=== PATIENT | female | born 1960 | race Caucasian/White ===

== ENCOUNTER → 2018-04-02 | Outpatient (CLI) | payer OTHER, SELFPAY ==
--- NOTE | 2018-04-02 16:46 | Diagnostic Imaging Report ---
Examination: MRI SPINE LUMBAR WITHOUT CONTRAST History: 58-year-old female with low back pain radiating to the left buttock and hip. Left lumbar radiculopathy. Comparison studies: None Technique: Sagittal, coronal and axial T2 , sagittal T1 and STIR; axial spin density oblique. Findings: Number of lumbar vertebral bodies: Five. Alignment: Normal lordosis. No scoliosis. Soft tissues: No T2 hyperintense inflammatory changes. Posterior paraspinal soft tissues and muscles: No abnormality. Lower thoracic cord: Normal in signal and morphology. The tip of the conus is at T12. Cauda equina: No masses. No arachnoiditis. Vertebrae: No fractures, infection or neoplasm. There is a 1.3 cm ovoid T1 and T2 hyperintense and STIR hypointense lesion in the inferior left aspect of the L5 vertebral body, consistent with a nonaggressive hemangioma. Degenerative changes: L1-L2: No abnormalities. L2-L3: No abnormalities. L3-L4: Mild bilateral facet arthropathy and ligamentum flavum thickening. Mild diffuse bulge results in mild bilateral neural foraminal narrowing. No canal stenosis. L4-L5: There is soft tissue in the left central and subarticular region, measuring 1.5 x 0.6 x 1.0 cm (superoinferior x anteroposterior x transverse dimensions). This soft tissue lesion causes mild flattening of the anterior and lateral left thecal sac and posterolateral displacement and flattening of the exiting left L4 nerve root. This soft tissue likely represents a sequestered disc. There is mild bilateral neural foraminal narrowing due to a diffuse disc bulge. No canal stenosis. L5-S1: Left subarticular disc protrusion with associated annular fissure which contacts the descending right S1 nerve root, which is not flattened displaced or impinged. No foraminal or canal stenosis. Additional findings: None. IMPRESSION: 1. Soft tissue lesion, presumably a sequestered disc, in the left central and subarticular region at L4-L5 which causes displacement and flattening of the exiting left L4 nerve root and is likely the cause for patient's symptoms. 2. Mild degenerative changes from L3-L4 through L5-S1. No canal or significant (not moderate to severe) foraminal stenosis. Signed by: Dr. Rosa Marie M.D. on 04/02/2018 4:42 PM
== END ==
LOC: MRI 13:53
PROVIDERS: ATTEND Family Medicine
DX: M51.26 Other intervertebral disc displacement, lumbar region (principal); M54.16 Radiculopathy, lumbar region
CPT/HCPCS: 72148